=== PATIENT | female | born 1975 | race Caucasian/White ===

== ENCOUNTER 2025-01-28 13:07 | Emergency (ER) | payer SELFPAY ==
[~2025-01-28] VITALS: Ht 170.2 cm; Wt 97.0 kg
[2025-01-28 13:11] VITALS: O2SAT 100
[2025-01-28 13:33] LABS: BASOPHILS % 0.4 % (0.0-2.0); EOSINOPHILS % 1.3 % (0.0-5.0); HEMATOCRIT. 34.2 % (36.0-48.0); HEMOGLOBIN. 10.6 g/dL (12.0-16.0); LYMPHOCYTES % 34.3 % (20.0-50.0); MEAN PLATELET VOLUME 9.6 fl (7.4-10.4); MONOCYTES % 10.6 % (2.0-8.0); NEUTROPHILS % 53.4 % (40.0-76.0); PLATELET 313 x1000/uL (130-400); RED BLOOD CELL COUNT 5.07 mill/uL (4.2-5.4); RED CELL DISTRIBUTION WIDTH 21.0 % (11.6-14.6)
[2025-01-28 13:36] LABS: ADD RBC MORPHOLOGY YES
[2025-01-28 13:44] LABS: CREATININE 0.6 mg/dL (0.6-1.0); UREA NITROGEN BLOOD 12 mg/dL (9-23)
[2025-01-28 13:58] LABS: PLATELET ESTIMATE NORMAL
[2025-01-28 14:16] LABS: CLARITY URINE CLEAR (CLEAR); COLOR URINE YELLOW (YELLOW); GLUCOSE URINE NEGATIVE (NEGATIVE); KETONES URINE NEGATIVE (NEGATIVE); LEUKOCYTE ESTERASE URINE NEGATIVE (NEGATIVE); NITRITE URINE NEGATIVE (NEGATIVE); OCCULT BLOOD URINE 3+ (NEGATIVE); PH URINE 5.5 (4.5-8.0); PROTEIN URINE NEGATIVE (NEGATIVE); SPECIFIC GRAVITY URINE 1.017 (1.005-1.030); UROBILINOGEN URINE 0.2 E.U./dL (0.2-1.0)
[2025-01-28 14:21] LABS: HCG SCREEN NEGATIVE
[2025-01-28 14:24] LABS: TROPONIN I HIGH SENSITIVITY < 4 ng/L (3.0-34)
[2025-01-28 14:26] LABS: ASPARTATE AMINOTRANSFERASE 38 IU/L (<34); BILIRUBIN DIRECT < 0.1 mg/dL (<=3.0); BILIRUBIN TOTAL 0.3 mg/dL (0.1-1.0); PHOSPHORUS 3.3 mg/dL (2.5-4.9); PROTEIN TOTAL 7.7 g/dL (6.0-8.3)
[2025-01-28 14:28] LABS: T4 FREE 2.42 ng/dL (0.89-1.76)
[2025-01-28 14:31] LABS: MUCUS URINE TRACE /lpf (< = 2+); SQUAMOUS EPITHELIAL CELL URINE 2+ /lpf (RARE/1+)
[2025-01-28 14:32] LABS: BACTERIA URINE 2+; RBC URINE 25-50 /hpf (0-2); WBC URINE NONE SEEN /hpf (0-2)
[2025-01-28 14:50] LABS: ETHANOL BLOOD < 10 mg/dL (<10)
[2025-01-28] MEDS ORDERED: METH-371 MT (15:40)
[2025-01-28] MEDS ORDERED: FERR1TAB91 MT (15:41)
[2025-01-28] MEDS: IBUPROFEN 400MG TABLET PO ONE (16:25)
[2025-01-28] MEDS: MAGNESIUM OXIDE 400MG TABLET PO SCH (16:25)
[2025-01-28 16:26] VITALS: BP 190/105; PULSE 86; RESP 16; TEMP 36.8; O2SAT 100
[2025-01-28] MEDS: METHIMAZOLE 5MG TABLET PO SCH (16:26)
[2025-01-29 08:38] LABS: *AMPHETAMINES SCREEN URINE NEGATIVE (NEGATIVE); *BARBITURATES SCREEN URINE NEGATIVE (NEGATIVE); *BENZODIAZEPINES SCREEN URINE NEGATIVE (NEGATIVE); *COCAINE SCREEN URINE NEGATIVE (NEGATIVE); CANNABINOID URINE SCREEN NEGATIVE (NEGATIVE); ECSTASY MDMA SCREEN URINE NEGATIVE (NEGATIVE); METHADONE URINE SCREEN NEGATIVE (NEGATIVE); OPIATES URINE SCREEN NEGATIVE (NEGATIVE); PHENCYCLIDINE URINE SCREEN NEGATIVE (NEGATIVE)
== END 2025-01-28 16:32 | disposition home or self-care (01) ==
LOC: ER 13:07
DX: E05.90 Thyrotoxicosis, unspecified without thyrotoxic crisis or storm (principal); I10 Essential (primary) hypertension; D50.9 Iron deficiency anemia, unspecified; F41.9 Anxiety disorder, unspecified; Z79.899 Other long term (current) drug therapy; Z98.890 Other specified postprocedural states
CPT/HCPCS: 36415; 71045; 80048; 80076; 80305; 80320; 81003; 81025; 83735; 83880; 84100; 84439; 84443; 84481; 84484; 84703; 85025; 93005; 99285; G0480